=== PATIENT | male | born 1995 | race African-American/Black ===

== ENCOUNTER 2017-11-05 01:46 | Emergency (ER) | payer BC ==
[2017-11-05 02:10] VITALS: BP 130/72; PULSE 51; RESP 15; TEMP 97.6; O2SAT 100
--- NOTE | 2017-11-05 03:29 | PD ---
HPI Chief Complaint: Respiratory Symptoms Time Seen by Provider: 03:20 Travel History International Travel<30 days: No Contact w/Intl Traveler<30days: No Traveled to known affect area: No History of Present Illness HPI 22-year-old black male presents emergency department requesting evaluation of chest discomfort. Patient states that he has had intermittent episodes of discomfort and some shortness of breath. He has felt as if he may have some wheezing. He is unsure whether this is from anxiety or if he was becoming ill. Symptoms are exacerbated by smoking marijuana. No alleviating factors. Symptoms are moderate. Currently are mild. PFSH Past Medical History Narrative Medical Asthma as a child Diminished Hearing: No Tetanus Vaccination: > 5 Years Influenza Vaccination: No Past Surgical History Surgical History: No Previous Surgery Social History Alcohol Use: Yes (rare) Tobacco Use: No Substance Use: Yes (pot) Allergies-Medications (Allergen,Severity, Reaction): Coded Allergies: No Known Allergies (Unverified , 11/05/17) Reported Meds & Prescriptions Reported Meds & Active Scripts Active No Active Prescriptions or Reported Medications Review of Systems Except as stated in HPI: all other systems reviewed are Neg General / Constitutional: No: Fever Eyes: No: Visual changes HENT: No: Headaches Cardiovascular: Positive: Chest Pain or Discomfort, No: Palpitations, Diaphoresis Respiratory: Positive: Cough, Shortness of Breath, Wheezing Gastrointestinal: No: Nausea, Vomiting, Abdominal Pain Genitourinary: No: Dysuria Musculoskeletal: No: Pain Skin: No Rash Neurologic: No: Weakness Psychiatric: Positive: Anxiety, No: Depression Endocrine: No: Polydipsia Hematologic/Lymphatic: No: Easy Bruising Physical Exam Narrative GENERAL: Well-developed, well-nourished in no apparent distress. Nontoxic appearing. HEAD: Normocephalic, atraumatic. EYES: Pupils equal round and reactive. Extraocular motions intact. No scleral icterus. No injection or drainage. ENT: Nose clear. Throat without erythema, tonsillar hypertrophy or exudate. Uvula midline. Airway patent. NECK: Trachea midline. Supple, nontender, moves head freely. No central bony tenderness or spasm. CARDIOVASCULAR: Regular rate and rhythm without murmurs, gallops, or rubs. RESPIRATORY: Clear to auscultation. Breath sounds equal bilaterally. No wheezes , rales, or rhonchi. GASTROINTESTINAL: Abdomen soft, non-tender, nondistended. No hepato-splenomegaly , or palpable masses. No guarding. EXTREMITIES: No clubbing, cyanosis, or edema. No joint tenderness. BACK: Nontender without deformity. No flank tenderness. NEUROLOGICAL: Awake, alert and oriented x 3 .Cranial nerves grossly intact. Motor and sensory grossly within normal limits. Normal speech. Data Data Last Documented VS Vital Signs Date Time Temp Pulse Resp B/P (MAP) Pulse Ox O2 Delivery O2 Flow Rate FiO2 11/05/17 02:10 97.6 51 15 130/72 (91) 100 Orders Orders Ed Discharge Order (11/05/17 03:25) [facility] Medical Decision Making Medical Screen Exam Complete: Yes Emergency Medical Condition: Yes Medical Record Reviewed: Yes Interpretation(s) EKG: Normal sinus rhythm. Normal intervals. Early re-pole consistent with thin body habitus Differential Diagnosis Differential diagnosis: Coronary disease, pericarditis, myocarditis, anxiety Narrative Course Patient is resting comfortable. I suspect his symptoms are from anxiety. Diagnosis Primary Impression: Anxiety Patient Instructions: General Instructions Additional Instructions: Rest. Increase fluids. Avoid marijuana. Avoid any stressors. Follow-up with a medical doctor in 1 week. Return to the ER if any problems. Med/Other Pt SpecificInfo: No Meds Exist/No RX given Scripts No Active Prescriptions or Reported Meds Disposition: 01 DISCHARGE HOME Condition: Stable Leonel Peñaloza Nov 05, 2017 03:29
--- NOTE | 2017-11-05 22:21 | EKG ---
Date Performed: 11/05/2017 Time Performed: 02:18:59 PTAGE: 22 years EKG: SINUS BRADYCARDIA EARLY REPOLARIZATION BORDERLINE ECG NO PREVIOUS TRACING DOCTOR: Diego Faria Interpretating Date/Time 11/05/2017 22:19:47
== END 2017-11-05 03:48 | disposition home or self-care (01) ==
LOC: NEPD 01:46
DX: F41.9 Anxiety disorder, unspecified (principal); F12.90 Cannabis use, unspecified, uncomplicated
CPT/HCPCS: 93005; 99282